=== PATIENT | male | born 1995 | race Hispanic/Latino ===

== ENCOUNTER 2025-03-08 00:45 | Emergency (ER) | payer SELFPAY ==
[2025-03-08] MEDS ORDERED: Ibuprofen 200 MG TAB ONE (02:03)
== END 2025-03-08 02:43 | disposition home or self-care (01) ==
LOC: CSHERS 00:45
DX: S40.011A Contusion of right shoulder, initial encounter (principal); F17.210 Nicotine dependence, cigarettes, uncomplicated; W10.9XXA Fall (on) (from) unspecified stairs and steps, initial encounter
CPT/HCPCS: 99283